=== PATIENT | male | born 1990 | race African-American/Black ===

== ENCOUNTER 2020-09-13 00:02 | Emergency (ER) | payer OTHER ==
[~2020-09-13] VITALS: Ht 170.2 cm; Wt 101.8 kg
[2020-09-13 00:35] LABS: ABSOLUTE NEUTROPHILS 3.9 thou/uL (1.4-8.2); BASOPHILS 0.6 % (0.0-2.0); EOSINOPHILS 1.2 % (0.0-3.0); HEMATOCRIT 44.3 % (42.0-52.0); HEMOGLOBIN 15.6 gm/dL (14.0-18.0); LYMPHOCYTES 32.7 % (24.0-44.0); MCH 31.7 pg (26.0-34.0); MCHC 35.3 g/dL (28.0-37.0); MONOCYTES 10.3 % (1.0-8.0); PLATELET COUNT 201 thou/uL (150-400); POLYS 55.2 % (36.0-66.0); RBC 4.92 mil/uL (4.50-6.00); RDW 12.7 % (10.5-14.5)
[2020-09-13 00:39] LABS: ANION GAP 12 mmol/L (7-16); BUN 14 mg/dL (7-18); CALCIUM 8.5 mg/dL (8.5-10.1); CHLORIDE 104 mmol/L (98-107); CO2 26 mmol/L (21-32); CREATININE 1.2 mg/dL (0.7-1.3); GLUCOSE 89 mg/dL (74-106); POTASSIUM 3.8 mmol/L (3.5-5.1); SODIUM 142 mmol/L (136-145)
[2020-09-13 00:48] LABS: ALBUMIN 4.1 g/dL (3.4-5.0); INR 1.03; PROTIME 11.2 Seconds (9.3-11.4); SGOT 46 U/L (15-37); SGPT 127 U/L (30-65); TOTAL BILIRUBIN 0.3 mg/dL (0.2-1.0); TOTAL PROTEIN 7.7 g/dL (6.4-8.2); TROPONIN-I <0.06 ng/mL (<0.06)
[2020-09-13 01:45] LABS: AMP/METHAMP Negative (Negative); BARBITURATES Negative (Negative); BENZODIAZEPINES Negative (Negative); COCAINE Negative (Negative); METHADONE Negative (Negative); OPIATES Negative (Negative); PCP Negative (Negative)
[2020-09-13 02:40] VITALS: BP 134/77
--- NOTE | 2020-09-13 11:06 | EKG ---
[place] [address] [facility] [place] [address] ELECTROCARDIOGRAM REPORT Name: KIP CHAPPELL JR Room #: DEP [facility]ITALWaldo[facility] [id number] Admission: 09/13/20 Attend Phys: Discharge: 09/13/20 Date of : [birth year] Report #: [id number] [facility] ED Test Date: 2020-09-13 Test Time: 01:25:00 Pat Name: KIP CHAPPELL Department: Room: Gender: M Sap Hana Developer: roddy luna : 1990 Requested By: Darinel Haider Order Number: [id number] MD: Silvio Bonilla Measurements Intervals [place] Rate: 81 P: 53 ND: 163 QRS: 52 QRSD: 87 T: 23 QT: 377 QTc: 438 Interpretive Statements Sinus rhythm Baseline wander in lead(s) I,II,aVR,aVL,aVF,V1,V3,V4,V5,V6 No previous ECG available for comparison Electronically Signed On 09-13-2020 11:06:02 CDT by Silvio Bonilla [email or web address] <ELECTRONICALLY SIGNED> By: Silvio Bonilla MD 09/13/20 1106 [id number] 012 Silvio Bonilla MD /[email or web address]
== END 2020-09-13 02:47 | disposition home or self-care (01) ==
LOC: ER 00:02
PROVIDERS: Emergency Medicine
DX: R42 Dizziness and giddiness (principal)